=== PATIENT | female | born 1970 | race Two or more races ===

== ENCOUNTER 2025-06-30 17:03 | Emergency (ER) | payer SELFPAY ==
[~2025-06-30] VITALS: Ht 167.6 cm; Wt 106.6 kg
--- NOTE | 2025-06-30 17:24 | ED.PDOC ---
Musculoskeletal HPI Comments A 54 year-old female, with a PMHX of poorly controlled DM, presents to the ED with a chief complaint of dark spot to the 2nd toe of the left foot as of this morning. Patient denies any trauma to the area and reports black dot appearing spontaneously. Patient has no further complaints at this time and otherwise denies further associated symptoms of pain, swelling, nausea, vomiting, fever, or chills. Vital signs were stable on arrival. Chief Complaint: Lower Extremity Time Seen by MD: 17:19 Reviewed Notes: Nurses Notes, Medications, Allergies Allergies: Coded Allergies: NO KNOWN ALLERGIES (Unverified , 06/30/25) Information Source: Patient Mode of Arrival: Ambulatory Location: Left Extremity Location: Toe 2 Timing: Hours Severity: Mild Pain: None Hand Dominance: Right Mechanism: Spontaneous Circumstances: Unknown Onset of Symptoms: Spontaneous DVT Risk Factors: NONE Associated signs and symptoms: Other (Dark spot to L foot 2nd toe ) Past Medical History PAST MEDICAL HISTORY: DM Surgical History: Denies all surgeries Surgical History (Other): Left great toe amputation 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 Family History Family History: Reviewed,noncontributory to illness, No family hx of Cancer, No family hx of DM, No family hx of Heart jen, No family hx of HTN, No family hx ofKidney jen, No family hx of Liver jen, No family hx of Lung jen, No family hx of Stroke Social History Smoker: Non-Smoker Alcohol: Denies ETOH Use Drugs: Denies Drug Use Lives In: Home Constitutional: denies: chills, diaphoresis, fatigue, fever, malaise, sweats, weakness, others EENTM: denies: blurred vision, double vision, ear bleeding, ear discharge, ear drainage, ear pain, ear ringing, eye pain, eye redness, hearing loss, mouth pain, mouth swelling, nasal discharge, nose bleeding, nose congestion, nose pain, photophobia, tearing, throat pain, throat swelling, voice changes, others Respiratory: denies: cough, hemoptysis, orthopnea, SOB at rest, shortness of breath, SOB with excertion, stridor, wheezing, others Cardiovascular: denies: chest pain, dizzy spells, diaphoresis, Dyspnea on exertion, edema, irregular heart beat, left arm pain, lightheadedness, palpitations, PND, syncope, others Gastrointestinal: denies: abdomen distended, abdominal pain, blood streaked bowels, constipated, diarrhea, dysphagia, difficulty swallowing, hematemesis, melena, nausea, poor appetite, poor fluid intake, rectal bleeding, rectal pain, vomiting, others Genitourinary: denies: abnormal vagina bleeding, burning, dyspareunia, dysuria, flank pain, frequency, hematuria, incontinence, pain, , vagina discharge, urgency, others Neurological: denies: dizziness, fainting, headache, left sided numbness, left sided weakness, numbness, paresthesia, pre-existing deficit, right sided numbness, right sided weakness, seizure, speech problems, tingling, tremors, weakness, others Musculoskeletal: denies: back pain, gout, joint pain, joint swelling, muscle pain, muscle stiffness, neck pain, others Integumetry: reports: others (Dark Spot to Left Foot 2nd Digit ); denies: bruises, change in color, change in hair/nails, dryness, laceration, lesions, lumps, rash, wounds Allergic/Immunocompromised: denies: Difficulty Healing, Frequent Infections, Hives, Itching, others Hematologic/Lymphatic: denies: anemia, blood clots, easy bleeding, easy bruising, swollen glands, others Endocrine: denies: excessive hunger, excessive sweating, excessive thirst, excessive urination, flushing, intolerance to cold, intolerance to heat, unexplained weight gain, unexplained weight loss, others Psychiatric: denies: anxiety, bipolar disorder, depression, hopeless, panic disorder, schizophrenia, sleepless, suicidal, others All Other Systems: Reviewed and Negative Physical Exam General Appearance: No Apparent Distress (Patient was in no distress at time of evaluation.), Normal HEENT: Normal ENT Inspection, Pharynx Normal, TMs Normal Neck: Full Range of Motion, Non-Tender, Normal, Normal Inspection Respiratory: Chest Non-Tender, Lungs Clear, No Accessory Muscle Use, No Respiratory Distress, Normal Breath Sounds Cardiovascular: No Edema, No JVD, No Murmur, No Gallop, Normal Peripheral Pulses, Regular Rate/Rhythm Breast Exam: Deferred Gastrointestinal: No Organomegaly, Non Tender, No Pulsatile Mass, Normal Bowel Sounds, Soft Genitalia: Deferred Pelvic: Deferred Rectal: Deferred Extremities: Other (Left foot reveals a great toe amputation. Additional aspect of the 2nd digit has extensive darkening over the tip extending into the nail and pedal aspect. Wound appears to be ecchymotic rather than necrotic. No edema.) Neurologic: Alert, No Motor Deficits, Normal Affect, Normal Mood, No Sensory Deficits Cerebellar Function: Normal Reflexes: Normal Skin: Dry, Normal Color, Warm Lymphatic: No Adenopathy Was a procedure done? Was a procedure done?: No Differential Diagnosis EXT Differential Diagnosis: Cellulitis, Other (Osteomyelitis, contusion) Other Differential Diagnosis Puncture Wound, Blister X-Ray, Labs, Meds, VS Vital Signs Date Time Temp Pulse Resp B/P (MAP) Pulse Ox O2 Delivery O2 Flow Rate FiO2 06/30/25 20:08 97.9 85 16 122/68 (86) 99 97.9 06/30/25 17:05 98.1 101 18 168/75 98 98.1 Lab Test 06/30/25 17:39 06/30/25 17:13 Range/Units White Blood Count 6.2 4.4-10.8 10^3/uL Red Blood Count 4.60 4.0-5.20 10^6/uL Hemoglobin 14.0 12.2-16.2 g/dL Hematocrit 40.0 36.0-46.0 % Mean Corpuscular Volume 87.1 80.0-100.0 fL Mean Corpuscular Hemoglobin 30.4 28.0-32.0 pg Mean Corpuscular Hemoglobin Concent 35.0 32.0-36.0 g/dL Red Cell Distribution Width 14.0 11.8-14.3 % Platelet Count 321 140-450 10^3/uL Mean Platelet Volume 8.3 6.9-10.8 fL Neutrophils (%) (Auto) 70.1 37.0-80.0 % Lymphocytes (%) (Auto) 19.8 10.0-50.0 % Monocytes (%) (Auto) 7.9 0.0-12.0 % Eosinophils (%) (Auto) 1.9 0.0-7.0 % Basophils (%) (Auto) 0.3 0.0-2.0 % Neutrophils # (Auto) 4.4 1.6-8.6 10 ^3/uL Lymphocytes # (Auto) 1.2 0.4-5.4 10 ^3/uL Monocytes # (Auto) 0.5 0-1.3 10 ^3/uL Eosinophils # (Auto) 0.1 0-0.8 10 ^3/uL Basophils # (Auto) 0 0-0.2 10 ^3/uL Nucleated Red Blood Cells 0.1 % Sodium Level 135 L 136-145 mmol/L Potassium Level 4.2 3.5-5.1 mmol/L Chloride Level 103 98-107 mmol/L Carbon Dioxide Level 21 20-31 mmol/L Anion Gap 11 5-15 Blood Urea Nitrogen 19 9-23 mg/dL Creatinine 0.81 0.550-1.02 mg/dL Glomerular Filtration Rate Calc 87 >90 mL/min BUN/Creatinine Ratio 23.5 H 10.0-20.0 Serum Glucose 258 H 74-106 mg/dL Calcium Level 10.1 8.7-10.4 mg/dL Urine Color Dark-yellow Yellow Urine Clarity Turbid H Clear Urine pH 5.5 5.0-9.0 Urine Specific [place] 1.036 H 1.001-1.035 Urine Protein 1+ H Negative Urine Ketones 1+ H Negative Urine Blood 3+ H Negative /uL Urine Nitrite Negative Negative Urine Bilirubin Negative Negative Urine Urobilinogen Normal Negative mg/dL Urine Leukocyte Esterase Negative Negative /uL Urine RBC 1004 0 - 4 /hpf Urine Microscopic WBC 37 H 0-5 /HPF Urine Squamous Epithelial Cells Few <5 /hpf Urine Bacteria None seen None Seen /hpf Urine Hyaline Casts Few 0 - 2 /lpf Urine Mucus Few None Seen Urine Yeast (Budding) Occasional None Seen /hpf Urine Glucose 3+ H Normal mg/dL X-Ray, Labs, Meds, VS Comment All studies performed the ED were evaluated by me personally. Serum studies were unremarkable for any systemic concerns other than prove of a poorly controlled diabetic state. Urinalysis confirmed a significant urinary tract infection. Patient was given her 1st dose of antibiotics prior to discharge. CT of the foot was unremarkable for any osteomyelitis formation. Patient appears to have sustained a contusion. Advised patient utilize antibiotics as directed until completion. Time of 1ST Reevaluation: 21:33 Reevaluation 1ST: Improved Consultation: PCP Patient Education/Counseling: Diagnosis, Treatment Family Education/Counseling: Diagnosis, Treatment, No Family Present Sepsis Recent Procedure: No On Antibiotic Therapy: No Respiratory Rate >20: No Heart Rate >90: No Temp<36 C (96.8 F) or >38.3 C: No SBP <90 or MAP <65 mmHG: No New Acute Mental Status Change: No Is the patient on CPAP, BIPAP,: No IV fluid given: No Departure 1 Departure Time of Disposition: 21:35 Impression: Primary Impression: Toe contusion Additional Impressions: Hyperglycemia due to diabetes mellitus UTI (urinary tract infection) Disposition: HOME / SELF CARE / HOMELESS Condition: Stable Additional Instructions: Advised patient utilize antibiotics as directed until completion and additional ly, advised patient follow up with the primary care provider for discussions related to improvement of her poorly controlled diabetes. If toe symptoms worsen, return to ED for management. e-Prescriptions Sulfamethoxazole W/Trimethopri (Bactrim Ds Tablet) 1 Tab Tb 1 TAB PO BID for 7 Days, #14 TAB Prov: MERT KAPOOR PAC 06/30/25 Discharged With: Self, Friend Critical Care Note Critical Care Time?: No Stability Stability form required: No Heart Score Heart Score: Heart Score Response (Comments) Value History N/A 0 EKG N/A 0 Age N/A 0 Risk Factors N/A 0 Troponin N/A 0 Total 0 I personally scribed for MERT KAPOOR PAC ([email or web address]) on 06/30/25 at 17:24. Electronically submitted by Amber Roth ([email or web address]). I personally scribed for MERT KAPOOR PAC ([email or web address]) on 06/30/25 at 17:24. Electronically submitted by Amber Roth ([email or web address]). MERT KAPOOR PAC Jun 30, 2025 17:24
[2025-06-30 17:55] LABS: Hematocrit 40.0 % (36.0-46.0); Hemoglobin 14.0 g/dL (12.2-16.2); Mean Corpuscular Hemoglobin 30.4 pg (28.0-32.0); Mean Corpuscular Volume 87.1 fL (80.0-100.0); Nucleated Red Blood Cells % 0.1 %
[2025-06-30 18:00] LABS: Chloride 103 mmol/L (98-107); Potassium 4.2 mmol/L (3.5-5.1)
[2025-06-30 18:01] LABS: Anion Gap 11 (5-15); Carbon Dioxide 21 mmol/L (20-31)
[2025-06-30 18:02] LABS: Calcium 10.1 mg/dL (8.7-10.4)
[2025-06-30 18:07] LABS: BUN/Creatinine Ratio 23.5 (10.0-20.0); Blood Urea Nitrogen 19 mg/dL (9-23)
[2025-06-30 18:11] LABS: Glucose 258 mg/dL (74-106); Sodium 135 mmol/L (136-145)
--- NOTE | 2025-06-30 18:13 | DVH ---
EXAM: CT CT L FOOT WO CONTRAST INDICATION: Rule out osteo of distal 2nd toe EXAM DATE: 06/30/2025 05:19 PM COMPARISON: None TECHNIQUE: Multiple axial CT images of the left foot were obtained using bone algorithm. Axial and co raul reformatting was done. Bone and soft tissue windows were reviewed. Radiation Dose Information: CT Dose: CTDI volume is 7.75 mGy. Dose-length product is 174.11 mGy*cm Findings/Impression: There is no evidence of an acute fracture, dislocation, erosive changes, blastic, or lytic lesions. 1st digit amputation. No definite abnormality of the 2nd digit. No radiopaque foreign bodies. No joint effusion or superficial soft tissue abnormalities. If there is continued clinical suspicion for osteomyelitis, recommend a contrast-enhanced MRI or nucl ear medicine WBC scan for further evaluation.
[2025-06-30 20:08] VITALS: BP 122/68; PULSE 85; RESP 16; TEMP 97.9; O2SAT 99
[2025-06-30 21:15] LABS: Urine Budding Yeast OCCASIONAL /hpf (None Seen); Urine Protein, UAD 1+ (Negative)
[2025-06-30] MEDS ORDERED: BACDST PO (21:38)
[2025-06-30] MEDS: SULFAMETHOX W/TRIMETH(800/160MG) DS TAB PO ONE (21:56)
== END 2025-06-30 21:48 | disposition home or self-care (01) ==
LOC: ER 17:03
DX: S90.122A Contusion of left lesser toe(s) without damage to nail, initial encounter (principal); E11.65 Type 2 diabetes mellitus with hyperglycemia; N39.0 Urinary tract infection, site not specified; Z89.412 Acquired absence of left great toe; X58.XXXA Exposure to other specified factors, initial encounter; Y93.89 Activity, other specified; Y92.89 Other specified places as the place of occurrence of the external cause; Y99.8 Other external cause status
CPT/HCPCS: 36415; 73700; 80048; 81001; 85025

== ENCOUNTER 2025-07-09 14:39 | Inpatient (IN) | payer MEDICAID, OTHER ==
[~2025-07-09] VITALS: Ht 167.6 cm; Wt 107.5 kg
[~2025-07-09 14:39] MED LIST: BACDST PO
[2025-07-09] MEDS: SODIUM CHLORIDE 0.9% 1,000 ML IV ONE (15:30)
--- NOTE | 2025-07-09 15:43 | ED.PDOC ---
History of Present Illness(SKN HPI Comments 54 y/o F, with PMHx of DM presents to the ED for CC of wound check. Patient states, she has been experiencing worsening left foot second digit discoloration x3days. Patient reports, to have been seen at [facility] on 06/30/25 and being departed home with no significant findings. Patient relays, that discoloration happened spontaneously and denies any trauma, injuries, or recent fall. No other symptoms or modifying factors present at this time. Chief Complaint: Wound Check Time Seen by MD: 15:30 History of Present Illness: Nurses Notes, Medications, Allergies Allergies: Coded Allergies: NO KNOWN ALLERGIES (Unverified , 06/30/25) Home Meds Active Scripts Sulfamethoxazole W/Trimethopri (Bactrim Ds Tablet) 1 Tab Tb, 1 TAB PO BID for 7 Days, #14 TAB Prov:ANTWONMERT PAC 06/30/25 Information Source: Patient Mode of Arrival: Ambulatory Severity: Moderate Timing: Days Duration: Since onset Prehospital treatment: None Location: Foot (left foot 2nd digit) Mechanism: Spontaneous Onset Developed: Other (discoloration) Retained Foreign Body: No Immunization Status of Animal: NA History of: Diabetes Associated Signs and Symptoms: None Past Medical History PAST MEDICAL HISTORY: DM Surgical History: Denies all surgeries 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 Family History Family History: Reviewed,noncontributory to illness, No family hx of Cancer, No family hx of DM, No family hx of Heart jen, No family hx of HTN, No family hx ofKidney jen, No family hx of Liver jen, No family hx of Lung jen, No family hx of Stroke Social History Smoker: Non-Smoker Alcohol: Denies ETOH Use Drugs: Denies Drug Use Lives In: Home Constitutional: denies: chills, diaphoresis, fatigue, fever, malaise, sweats, weakness, others EENTM: denies: blurred vision, double vision, ear bleeding, ear discharge, ear drainage, ear pain, ear ringing, eye pain, eye redness, hearing loss, mouth pain, mouth swelling, nasal discharge, nose bleeding, nose congestion, nose pain, photophobia, tearing, throat pain, throat swelling, voice changes, others Respiratory: denies: cough, hemoptysis, orthopnea, SOB at rest, shortness of breath, SOB with excertion, stridor, wheezing, others Cardiovascular: denies: chest pain, dizzy spells, diaphoresis, Dyspnea on exertion, edema, irregular heart beat, left arm pain, lightheadedness, palpitations, PND, syncope, others Gastrointestinal: denies: abdomen distended, abdominal pain, blood streaked bowels, constipated, diarrhea, dysphagia, difficulty swallowing, hematemesis, melena, nausea, poor appetite, poor fluid intake, rectal bleeding, rectal pain, vomiting, others Genitourinary: denies: abnormal vagina bleeding, burning, dyspareunia, dysuria, flank pain, frequency, hematuria, incontinence, pain, , vagina discharge, urgency, others Neurological: denies: dizziness, fainting, headache, left sided numbness, left sided weakness, numbness, paresthesia, pre-existing deficit, right sided numbness, right sided weakness, seizure, speech problems, tingling, tremors, w eakness, others Musculoskeletal: denies: back pain, gout, joint pain, joint swelling, muscle pain, muscle stiffness, neck pain, others Integumetry: reports: change in color (left foot 2nd digit); denies: bruises, change in hair/nails, dryness, laceration, lesions, lumps, rash, wounds, others Allergic/Immunocompromised: denies: Difficulty Healing, Frequent Infections, Hives, Itching, others Hematologic/Lymphatic: denies: anemia, blood clots, easy bleeding, easy bruising, swollen glands, others Endocrine: denies: excessive hunger, excessive sweating, excessive thirst, excessive urination, flushing, intolerance to cold, intolerance to heat, unexplained weight gain, unexplained weight loss, others Psychiatric: denies: anxiety, bipolar disorder, depression, hopeless, panic disorder, schizophrenia, sleepless, suicidal, others All Other Systems: Reviewed and Negative Physical Exam General Appearance: No Apparent Distress, Normal HEENT: Normal ENT Inspection, Pharynx Normal Neck: Full Range of Motion, Non-Tender, Normal, Normal Inspection Respiratory: Chest Non-Tender, Lungs Clear, No Accessory Muscle Use, No Respiratory Distress, Normal Breath Sounds Cardiovascular: No Edema, No Murmur, No Gallop, Normal Peripheral Pulses, Reg ular Rate/Rhythm Breast Exam: Deferred Gastrointestinal: No Organomegaly, Non Tender, No Pulsatile Mass, Normal Bowel Sounds, Soft Genitalia: Deferred Pelvic: Deferred Rectal: Deferred Extremities: No calf tenderness, Normal capillary refill, Normal inspection, Normal range of motion, Non-tender, No pedal edema Musculoskeletal : Location: Left Extremity Location: Foot, Great Toe (left great toe amputation), Toe 2 (left second digit discoloration) Apperance: Normal Neurologic: Alert, funeral 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 Was a procedure done?: No Differential Diagnosis (INTG) Differential Diagnosis: Gangrene, Osteomyelitis X-Ray, Labs, Meds, VS Vital Signs Date Time Temp Pulse Resp B/P (MAP) Pulse Ox O2 Delivery O2 Flow Rate FiO2 07/09/25 14:41 98.1 98 18 114/68 98 98.1 [place] [address] Ph: [phone] DIAGNOSTIC IMAGING Diagnostic Imaging Report : [id number] Signed PATIENT: GIGI URENA ACCT: [id number] UNIT: [id number] : 1970 LOC: ER ROOM / BED: / AGE / SEX: 54 / F ADM STATUS: REG ER SERVICE 1530 ORDERING PHYSICIAN: LANCE HERNANDEZ MD PROCEDURE(s): LFOOT - L FOOT 3 VIEW XRAY REASON: c/f 2nd toe infection ORDER NUMBER(s): [id number], ACCESSION NUMBER(s): [id number] X-ray left foot Technique: AP lateral and oblique views REASON FOR EXAM: c/f 2nd toe infection INDICATION: c/f 2nd toe infection FINDINGS: There has been amputation of the 1st digit. There is periarticular osteoporosis. No cortical destruction of bone. Plantar heel spur on lateral view IMPRESSION: 1. No acute bony pathology ATED BY: BHUMI SAINI MD DICTATED DATE/TIME: 07/09/251601 SIGNED BY: BHUMI SAINI MD SIGNED DATE/TIME: 07/09/25 160 CC: Time of 1ST Reevaluation: 16:00 Reevaluation 1ST: Unchanged Patient Education/Counseling: Diagnosis, Treatment Family Education/Counseling: No Family Present SEPSIS Sepsis Screen Date sepsis recognized/suspect: Jul 09, 2025 Time Sepsis recognized/suspect: 1443 Recent Procedure: No On Antibiotic Therapy: No Respiratory Rate >20: No Heart Rate >90: No Temp<36 C (96.8 F) or >38.3 C: No SBP <90 or MAP <65 mmHG: No New Acute Mental Status Change: No Is the patient on CPAP, BIPAP,: No Physician Orders L Foot 3 View Xray (07/09/25 15:30) Basic Metabolic Panel (07/09/25 15:30) Complete Blood Count (07/09/25 15:30) Lactic Acid W/ Reflex Order (07/09/25 15:30) Blood Culture (07/09/25 15:30) Cefepime 2gm/50ml Ns (Maxipime 2gm/50ml) (07/09/25 15:30) Vital Signs Date Time Temp Pulse Resp B/P (MAP) Pulse Ox O2 Delivery O2 Flow Rate FiO2 07/09/25 14:41 98.1 98 18 114/68 98 98.1 Departure 1 Departure Time of Disposition: 17:56 (Patient with concern for osteo of the left 2nd toe. will cover patient with antibiotics and admit for expert consultation. ) Impression: Primary Impression: Osteomyelitis Qualified Codes: M86.172 - Other acute osteomyelitis, left ankle and foot Additional Impression: Toe infection Disposition: ADMITTED INPATIENT Admit to: Med Surg Condition: Serious Critical Care Note Critical Care Time?: No Stability Stability form required: No Heart Score Heart Score: Heart Score Response (Comments) Value History N/A 0 EKG N/A 0 Age N/A 0 Risk Factors N/A 0 Troponin N/A 0 Total 0 I personally scribed for LANCE HERNANDEZ MD ([email or web address]) on 07/09/25 at 15:43. Electronically submitted by Ruth Crump ([email or web address]). I personally scribed for LANCE HERNANDEZ MD ([email or web address]) on 07/09/25 at 17:22. Electronically submitted by Ruth Crump ([email or web address]). LANCE HERNANDEZ MD Jul 09, 2025 15:43
--- NOTE | 2025-07-09 16:04 | DVH ---
X-ray left foot Technique: AP lateral and oblique views REASON FOR EXAM: c/f 2nd toe infection INDICATION: c/f 2nd toe infection FINDINGS: There has been amputation of the 1st digit. There is periarticular osteoporosis. No cortica l destruction of bone. Plantar heel spur on lateral view IMPRESSION: 1. No acute bony pathology
[2025-07-09 19:19] LABS: Chloride 105 mmol/L (98-107); Potassium 5.0 mmol/L (3.5-5.1); Sodium 138 mmol/L (136-145)
[2025-07-09 19:20] LABS: Anion Gap 10 (5-15); Carbon Dioxide 23 mmol/L (20-31)
[2025-07-09 19:21] LABS: Calcium 10.1 mg/dL (8.7-10.4)
[2025-07-09 19:26] LABS: BUN/Creatinine Ratio 15.0 (10.0-20.0); Blood Urea Nitrogen 12 mg/dL (9-23)
[2025-07-09 19:36] LABS: Hematocrit 39.8 % (36.0-46.0); Hemoglobin 13.9 g/dL (12.2-16.2); Mean Corpuscular Hemoglobin 30.6 pg (28.0-32.0); Mean Corpuscular Volume 87.8 fL (80.0-100.0); Nucleated Red Blood Cells % 0.1 %
[2025-07-09 19:48] LABS: Glucose 146 mg/dL (74-106)
[2025-07-09 19:59] LABS: Lactic Acid w/Reflex 2.4 mmol/L (0.4-2.0)
[2025-07-09] MEDS ORDERED: DEXTROSE (50%) 50ML SYRG IV PRN (22:15)
--- NOTE | 2025-07-09 22:56 | DVH ---
EXAMINATION: CT CT L FOOT WO CONTRASTCT CT L FOOT WO CONTRAST INDICATION: R/O infection/ osteomyelitis COMPARISON: XY L FOOT 3 VIEW XRAY on DOS: 07/09/25, CT CT L FOOT WO CONTRAST on DOS: 06/30/25 TECHNIQUE: CT of the rightleft foot was performed without contrast. Volume transverse images were obt ained reconstructed in multiple planes using bone and soft tissue algorithms. CONTRAST: None DLP: 202 mGy-cm FINDINGS: The alignment is normal. The joint spaces are normal. No fracture. No dislocation. Amputation changes are again seen in the 1st digit. No obvious osseous destructive changes identified. Osteomyelitis is not excluded. If there is ongoin g concern for acute osteomyelitis, recommend MRI of the foot There are no joint effusions. Soft tissue edema and skin thickening is seen throughout the heel which is suspicious for cellulitis. Small plantar calcaneal enthesophyte IMPRESSION: 1. Soft tissue edema and skin thickening is seen throughout the heel which is suspicious for cellulit is. 2. No obvious osseous destructive changes identified. Osteomyelitis is not excluded. If there is whitney oing concern for acute osteomyelitis, recommend MRI of the foot
--- NOTE | 2025-07-09 23:25 | DVHHPRES ---
History of Present Illness Resident Creating Document: VIRGEN KAUR RESIDENT History of Present Illness Eva Mcclelland is a 54-year-old female, with past medical history of DM type 2 and hypothyroidism. The patient presented to the ED with chief complaint of 1 week left foot 2nd digit color discoloration "turning black" without trauma. The patient states, she first noticing a small purple dot on the tip of the left 2nd toe that has progressively increased on sized on the past week. Associated with pain and needles sensation. Today, she noticed the discoloration was getting d arker, with peripheral erythema and warmth, this prompted her visit to the ED. Patient reports, to have been seen at [facility] on 06/30/25 for the same complaint and being departed home with no significant findings. The patient reported she had amputation of left 1st toe 2 years ago. The patient denies trauma of the toe, injuries, fever, or other symptoms. The patient will be admitted for further evaluation and management. Endocrine: Diabetes (Type 2 for about 17 years. ), Hypothyroidism Past Surgical History: Other (Left 1st digit amputation in 2022) Smoke: No ALCOHOL: none Lives: with Family Review of Systems Constitutional: No: Fever, Chills, Sweats, Weakness, Malaise, Other Eyes: No: Pain, Vision change, Conjunctivae inflammation, Eyelid inflammation, Other, Redness ENT: No: Ear pain, Ear discharge, Nose pain, Nose discharge, Nose congestion, Mouth pain, Mouth swelling, Throat pain, Throat swelling, Other Cardiovascular: No: Chest Pain, Palpitations, Orthopnea, Paroxysmal Noc. Dyspnea, Edema, Lt Headedness, Other Gastrointestinal: No: Nausea, Vomiting, Abdominal Pain, Diarrhea, Constipation, Melena, Hematochezia, Other Genitourinary: No Dysuria, No Frequency, No Incontinence, No Hematuria, No Retention, No Other Musculoskeletal: other (discoloration on left 2nd digit of the foot), neck pain , shoulder pain Skin: No: Rash, Lesions, Jaundice, Bruising, Other Neurological: No: Weakness, Numbness, Incoordination, Change in speech, Confusion, Seizures, Other Allergies: Coded Allergies: NO KNOWN ALLERGIES (Unverified , 06/30/25) Medications Current Medications Medications Dose Ordered Sig/Parth Route Start Time Stop Time Status Last Admin Dose Admin Diagnostic Test (Pha) 1 strip Q6HR 07/10/25 00:00 Insulin Human Regular Q6HR SC 07/10/25 00:00 Dextrose 50 ml UD PRN IV 07/09/25 22:15 Pantoprazole Sodium 40 mg DAILY PO 07/10/25 10:00 Aspirin 81 mg DAILY PO 07/10/25 10:00 Atorvastatin Calcium 40 mg DAILY PO 07/10/25 10:00 Exam Vital Signs Vital Signs Date Time Temp Pulse Resp B/P (MAP) Pulse Ox O2 Delivery O2 Flow Rate FiO2 07/09/25 19:45 98.2 86 16 124/65 (84) 97 98.2 General Appearance: Alert, Oriented X3, Cooperative, No acute distress HEENT: Atraumatic, Mucous membr. moist/pink Respiratory: Clear to auscultation, Normal air movement Cardiovascular: Regular rate, Normal S1, Normal S2, No murmurs Abdominal: Normal bowel sounds, Soft, No tenderness, No hepatospenomegaly, No masses Extremities: No clubbing, No cyanosis, No edema, Other (Left foot 1st digit amputated. 2nd digit with dark discoloration, erythema on the side margins and warmth. The pedal pulses are decreased 1+/5 +. Propioseption is present, sensitivity decreased 2+/5+) Skin: No rashes, No breakdown, No significant lesion Neuro: Normal gait, Normal speech, Normal tone, Sensation intact Psych/Mental Status: Mental status NL, Mood NL Labs/Xrays Labs Test 07/09/25 21:26 07/09/25 18:39 Range/Units Lactic Acid Level 0.8 0.4-2.0 mmol/L White Blood Count 5.6 4.4-10.8 10^3/uL Red Blood Count 4.53 4.0-5.20 10^6/uL Hemoglobin 13.9 12.2-16.2 g/dL Hematocrit 39.8 36.0-46.0 % Mean Corpuscular Volume 87.8 80.0-100.0 fL Mean Corpuscular Hemoglobin 30.6 28.0-32.0 pg Mean Corpuscular Hemoglobin Concent 34.9 32.0-36.0 g/dL Red Cell Distribution Width 13.8 11.8-14.3 % Platelet Count 323 140-450 10^3/uL Mean Platelet Volume 8.1 6.9-10.8 fL Neutrophils (%) (Auto) 62.3 37.0-80.0 % Lymphocytes (%) (Auto) 26.7 10.0-50.0 % Monocytes (%) (Auto) 9.1 0.0-12.0 % Eosinophils (%) (Auto) 1.7 0.0-7.0 % Basophils (%) (Auto) 0.2 0.0-2.0 % Neutrophils # (Auto) 3.5 1.6-8.6 10 ^3/uL Lymphocytes # (Auto) 1.5 0.4-5.4 10 ^3/uL Monocytes # (Auto) 0.5 0-1.3 10 ^3/uL Eosinophils # (Auto) 0.1 0-0.8 10 ^3/uL Basophils # (Auto) 0 0-0.2 10 ^3/uL Nucleated Red Blood Cells 0.1 % Sodium Level 138 136-145 mmol/L Potassium Level 5.0 3.5-5.1 mmol/L Chloride Level 105 98-107 mmol/L Carbon Dioxide Level 23 20-31 mmol/L Anion Gap 10 5-15 Blood Urea Nitrogen 12 9-23 mg/dL Creatinine 0.80 0.550-1.02 mg/dL Glomerular Filtration Rate Calc 89 >90 mL/min BUN/Creatinine Ratio 15.0 10.0-20.0 Serum Glucose 146 H 74-106 mg/dL Calcium Level 10.1 8.7-10.4 mg/dL SEPSIS Sepsis Screen Date sepsis recognized/suspect: Jul 09, 2025 Time Sepsis recognized/suspect: 1443 Recent Procedure: No On Antibiotic Therapy: No Respiratory Rate >20: No Heart Rate >90: No Temp<36 C (96.8 F) or >38.3 C: No SBP <90 or MAP <65 mmHG: No New Acute Mental Status Change: No Is the patient on CPAP, BIPAP,: No Physician Orders L Foot 3 View Xray (07/09/25 15:30) Blood Culture (07/09/25 15:30) Lt Low Ext Art Duplex (07/09/25 21:45) Ct L Foot Wo Contrast (07/09/25 21:45) Admit (07/09/25 22:08) Code Status (07/09/25 22:08) Vital Signs .PER UNIT PROTOCOL (07/09/25 22:08) Review Orders With Adm.Md (07/09/25 22:08) Bedrest With Bathroom Privileg (07/09/25 22:08) Consistent Carb(Ccho)Diabetes (07/10/25 Breakfast) Notify Md Of Changes From Base (07/09/25 22:08) Advance Directive (07/09/25 22:08) Urinalysis (07/09/25 22:08) Patient Condition (07/09/25 22:08) Allergies (07/09/25 22:08) Drug Screen (07/09/25 22:08) Notify Md Of Changes From Base (07/09/25 22:08) Glucose Blood (Accu-Chek Comfort Curve T (07/10/25 00:00) Insulin R (Human) (Insulin R) (07/10/25 00:00) Dextrose 50% Syringe (07/09/25 22:15) Pantoprazole Tablet (Protonix Tablet) (07/10/25 10:00) Aspirin Tablet (07/10/25 10:00) Atorvastatin (Lipitor) (07/10/25 10:00) Complete Blood Count (07/10/25 04:00) Basic Metabolic Panel (07/10/25 04:00) Hemoglobin A1c (07/09/25 22:23) Vital Signs Date Time Temp Pulse Resp B/P (MAP) Pulse Ox O2 Delivery O2 Flow Rate FiO2 07/09/25 19:45 98.2 86 16 124/65 (84) 97 98.2 07/09/25 14:41 98.1 98 18 114/68 98 98.1 Laboratory Tests Test 07/09/25 18:39 07/09/25 21:26 Lactic Acid Level 2.4 mmol/L (0.4-2.0) *H 0.8 mmol/L (0.4-2.0) White Blood Count 5.6 10^3/uL (4.4-10.8) Assessment/Plan Assessment/Plan #Left foot 2nd digit osteomyelitis #R/O peripheral vascular insufficiency. Left foot CT scan Left foot Doppler US Atorvastatin 40mg po Aspirin 81 mg po Surgery consult. Vascular surgery consult #DM type 2 with hyperglycemia HbA1c Insulin Sliding scale #Hypothyroidism Levothyroxin 150mcg po qd #Obesity Counselling, life style modifications. Diabetic diet DVT prophylaxis- ambulating. PUD prophylaxis Protonic. Goals of care discussed with the patient > 35 min. Discussed plan of care with Dr. Horne Code status: Full code PCP: Clinic in [place], does not recall the name. Plan discussed with: Patient, the patient agrees with the admission plan. Plan discussed with: Patient My Orders Orders - VIRGEN KAUR RESIDENT Procedure Category Date Status Time Admit ADMIT 07/09/25 Transmitted 22:08 Code Status CODE 07/09/25 Transmitted 22:08 Vital Signs [facility] 07/09/25 In Process 22:08 Review Orders With [facility] 07/09/25 In Process Adm.Md 22:08 Bedrest With Bathroom [facility] 07/09/25 In Process Privileg 22:08 Consistent DIET 07/10/25 Transmitted Carb(Ccho)Diabetes Breakfast Notify Md Of Changes [facility] 07/09/25 In Process From Base 22:08 Advance Directive [facility] 07/09/25 In Process 22:08 Urinalysis LAB 07/09/25 Logged 22:08 Patient Condition ORDERS 07/09/25 Transmitted 22:08 Allergies [facility] 07/09/25 In Process 22:08 Drug Screen LAB 07/09/25 Logged 22:08 Notify Md Of Changes [facility] 07/09/25 In Process From Base 22:08 Glucose Blood PHA 07/10/25 In Process (Accu-Chek Comfort 00:00 Insulin R (Human) PHA 07/10/25 In Process (Insulin R) 00:00 Dextrose 50% Syringe PHA 07/09/25 In Process 22:15 Pantoprazole Tablet PHA 07/10/25 In Process (Protonix Tablet) 10:00 Aspirin Tablet PHA 07/10/25 In Process 10:00 Atorvastatin (Lipitor) PHA 07/10/25 In Process 10:00 Complete Blood Count LAB 07/10/25 Verified 04:00 Basic Metabolic Panel LAB 07/10/25 Verified 04:00 Hemoglobin A1c LAB 07/09/25 In Process 22:23 Date of Service: Jul 09, 2025 Billing Provider: JARED HORNE MD Common Visit Codes: 32106-CUPCSTD INP/OBS CARE (HIGH) Secondary Visit Codes: [id number] CARE PLAN 30 MINUTES VIRGEN KAUR RESIDENT Jul 09, 2025 23:25
--- NOTE | 2025-07-09 23:30 | DVH ---
LEFT LOWER EXTREMITY ARTERIAL DUPLEX ULTRASOUND STUDY: REASON FOR EXAM: R/O SEVERE PAD TECHNIQUE: The full lengths of the arterial segments were evaluated with color-flow Doppler ultrasoun d. Suspected abnormalities were evaluated with askew scale ultrasound. Decorator Hand spectral Doppler waveforms, with velocity measurements were obtained. Spectral waveforms with velocity measurements w ere obtained 2 to 4 cm central to any areas of significant stenosis. Common femoral, superficial femo ral, popliteal, posterior tibial, and anterior tibial arteries were evaluated. FINDINGS: There is diffuse atherosclerotic plaque throughout the left lower extremity. The common femoral marc ry waveform is multiphasic with a brisk upstroke. The superficial femoral and popliteal arteries are patent with moderate velocity monophasic waveforms. No flow is identified in the posterior tibial art ida. There is monophasic flow in the distal anterior tibial artery. IMPRESSION: Occluded posterior tibial artery. No other occlusion or focal stenosis is identified. Monophasic flow throughout the majority of the le ft lower extremity.
[2025-07-10] MEDS: ACCU-CHEK COMFORT CURVE STRIP VI SCH
[2025-07-10] MEDS: InsuLIN REG 1unit/0.01ml Soln (100units/ml) SC SCH
[2025-07-10] MEDS: ACETAMINOPHEN 325 MG TAB PO ONE (04:43)
[2025-07-10] MEDS: CEFEPIME 2GM/50ML NS 50 ML IV ONE (05:08)
[2025-07-10 07:40] LABS: Hematocrit 38.9 % (36.0-46.0); Hemoglobin 13.2 g/dL (12.2-16.2); Mean Corpuscular Hemoglobin 30.0 pg (28.0-32.0); Mean Corpuscular Volume 88.1 fL (80.0-100.0); Nucleated Red Blood Cells % 0.2 %
[2025-07-10 07:46] LABS: Anion Gap 9 (5-15); Calcium 9.4 mg/dL (8.7-10.4); Potassium 4.3 mmol/L (3.5-5.1); Sodium 137 mmol/L (136-145)
[2025-07-10 07:52] LABS: BUN/Creatinine Ratio 12.5 (10.0-20.0); Blood Urea Nitrogen 10 mg/dL (9-23)
[2025-07-10 07:57] LABS: Carbon Dioxide 20 mmol/L (20-31); Chloride 108 mmol/L (98-107); Glucose 181 mg/dL (74-106)
[2025-07-10] MEDS: VANCOMYCIN 1GM/200ML PM 200 ML IV ONE (08:14)
[2025-07-10] MEDS: ATORVASTATIN 20 MG TAB PO SCH (08:26)
[2025-07-10] MEDS: PANTOPRAZOLE 40 MG TAB PO SCH (08:27)
[2025-07-10 09:00] VITALS: BP 131/62; PULSE 83; RESP 18; TEMP 98; O2SAT 98
[2025-07-10] MEDS ORDERED: PANTOPRAZOLE 40 MG TAB PO SCH (10:00)
[2025-07-10 12:24] VITALS: PULSE 95; RESP 18; O2SAT 98
--- NOTE | 2025-07-10 12:37 | DVHCONRES ---
Date Seen: Jul 10, 2025 Resident Creating Document: CRISTINA DAVENPORT Jr., MD Referring Physician er Reason for Consultation Left 2nd toe ulcer History of Present Illness 54-year-old female, with past medical history of DM type 2 and hypothyroidism. The patient presented to the ED with chief complaint of 1 week left foot 2nd digit color discoloration "turning black" without trauma. The patient states, she first noticing a small purple dot on the tip of the left 2nd toe that has progressively increased on sized on the past week. Associated with pain and needles sensation. Today, she noticed the discoloration was getting darker, with peripheral erythema and warmth, this prompted her visit to the ED. Patient reports, to have been seen at [facility] on 06/30/25 for the same complaint and being departed home with no significant findings. The patient reported she had amputation of left 1st toe 2 years ago. The patient denies trauma of the toe, injuries, fever, or other symptoms. The patient will be admitted for further evaluation and management. Patient currently asymptomatic Past Medical History DM type 2 and hypothyroidism. Past Surgical History Left 1st toe amputation Social History Nonsmoker nondrinker Allergies: Coded Allergies: NO KNOWN ALLERGIES (Unverified , 06/30/25) Home Meds Active Scripts Sulfamethoxazole W/Trimethopri (Bactrim Ds Tablet) 1 Tab Tb, 1 TAB PO BID for 7 Days, #14 TAB Prov:MERT KAPOOR PAC 06/30/25 Current Medications Current Medications Medications (Trade) Dose Ordered Sig/Parth Route PRN Reason Start Time Stop Time Status Last Admin Diagnostic Test (Pha) (Accu-Chek Comfort Curve T) 1 strip Q6HR 07/10/25 00:00 07/10/25 11:06 Insulin Human Regular (InsuLIN R) Q6HR SC 07/10/25 00:00 07/10/25 11:06 Dextrose 50 ml UD PRN IV Blood Sugar LESS THAN 60 07/09/25 22:15 Pantoprazole Sodium (Protonix Tablet) 40 mg DAILY PO 07/10/25 10:00 07/09/25 22:28 DC Pantoprazole Sodium (Protonix Tablet) 40 mg DAILY PO 07/10/25 10:00 07/10/25 08:27 Aspirin 81 mg DAILY PO 07/10/25 10:00 07/10/25 08:27 Atorvastatin Calcium (Lipitor) 40 mg DAILY PO 07/10/25 10:00 07/10/25 08:26 Review of Systems Systems reviewed otherwise negative other than what is in HPI Vital Signs Vital Signs Date Time Temp Pulse Resp B/P (MAP) Pulse Ox O2 Delivery O2 Flow Rate FiO2 07/10/25 12:24 95 18 98 Room Air* 0 21 07/10/25 09:00 98.0 131/62 (85) 98.0 Physical Exam Head eyes ears nose and throat exam eyes are nonicteric conjunctiva is pink neck was supple no JVD no lymphadenopathy no carotid bruits lungs are clear to auscultation heart was regular rate and rhythm abdomen is soft nontender with no pulsatile abdominal mass. Extremities palpable femoral and pedal pulses on the DP bilateral. There is dry scab/blister on the distal 2nd toe. Remaining portion of the toe is healthy. Labs/Diagnostic Data Labs Test 07/10/25 11:03 07/10/25 07:00 07/09/25 21:26 07/09/25 18:39 Range/Units POC Glucose 251 H 70-106 mg/dl White Blood Count 4.8 4.4-10.8 10^3/uL Red Blood Count 4.42 4.0-5.20 10^6/uL Hemoglobin 13.2 12.2-16.2 g/dL Hematocrit 38.9 36.0-46.0 % Mean Corpuscular Volume 88.1 80.0-100.0 fL Mean Corpuscular Hemoglobin 30.0 28.0-32.0 pg Mean Corpuscular Hemoglobin Concent 34.0 32.0-36.0 g/dL Red Cell Distribution Width 13.9 11.8-14.3 % Platelet Count 271 140-450 10^3/uL Mean Platelet Volume 8.0 6.9-10.8 fL Neutrophils (%) (Auto) 62.4 37.0-80.0 % Lymphocytes (%) (Auto) 27.1 10.0-50.0 % Monocytes (%) (Auto) 7.8 0.0-12.0 % Eosinophils (%) (Auto) 2.4 0.0-7.0 % Basophils (%) (Auto) 0.3 0.0-2.0 % Neutrophils # (Auto) 3.0 1.6-8.6 10 ^3/uL Lymphocytes # (Auto) 1.3 0.4-5.4 10 ^3/uL Monocytes # (Auto) 0.4 0-1.3 10 ^3/uL Eosinophils # (Auto) 0.1 0-0.8 10 ^3/uL Basophils # (Auto) 0 0-0.2 10 ^3/uL Nucleated Red Blood Cells 0.2 % Sodium Level 137 136-145 mmol/L Potassium Level 4.3 3.5-5.1 mmol/L Chloride Level 108 H 98-107 mmol/L Carbon Dioxide Level 20 20-31 mmol/L Anion Gap 9 5-15 Blood Urea Nitrogen 10 9-23 mg/dL Creatinine 0.80 0.550-1.02 mg/dL Glomerular Filtration Rate Calc 89 >90 mL/min BUN/Creatinine Ratio 12.5 10.0-20.0 Serum Glucose 181 H 74-106 mg/dL Calcium Level 9.4 8.7-10.4 mg/dL Thyroid Stimulating Hormone (TSH) 0.02 L 0.55-4.78 uIU/mL Lactic Acid Level 0.8 0.4-2.0 mmol/L Hemoglobin A1c 9.1 H <5.7 % A1C LEFT LOWER EXTREMITY ARTERIAL DUPLEX ULTRASOUND STUDY: REASON FOR EXAM: R/O SEVERE PAD TECHNIQUE: The full lengths of the arterial segments were evaluated with color- flow Doppler ultrasound. Suspected abnormalities were evaluated with askew scale ultrasound. Administrative Law Judge spectral Doppler waveforms, with velocity measurements were obtained. Spectral waveforms with velocity measurements were obtained 2 to 4 cm central to any areas of significant stenosis. Common femoral, superficial femoral, popliteal, posterior tibial, and anterior tibial arteries were evaluated. FINDINGS: There is diffuse atherosclerotic plaque throughout the left lower extremity. The common femoral artery waveform is multiphasic with a brisk upstroke. The superficial femoral and popliteal arteries are patent with moderate velocity monophasic waveforms. No flow is identified in the posterior tibial artery. There is monophasic flow in the distal anterior tibial artery. IMPRESSION: Occluded posterior tibial artery. No other occlusion or focal stenosis is identified. Monophasic flow throughout the majority of the left lower extremity. Assessment Left 2nd toe ulcer conservative management no endovascular intervention required. She area clean dry Betadine wash daily. Plan/Recommendation Left 2nd toe ulcer conservative management no endovascular intervention required. She area clean dry Betadine wash daily. Plan discussed with: Patient CRISTINA DAVENPORT Jr., MD Jul 10, 2025 12:37
[2025-07-10 13:00] VITALS: BP 121/54; PULSE 76; RESP 19; TEMP 98; O2SAT 95
[2025-07-10] MEDS ORDERED: INSU1INJ19 SC (14:27)
[2025-07-10] MEDS ORDERED: PIOG1TAB37 PO (14:27)
[2025-07-10] MEDS ORDERED: LISI10TA34 PO (14:27)
[2025-07-10] MEDS ORDERED: METF-372 PO (14:27)
[2025-07-10] MEDS ORDERED: SEMA4INJ SC (14:27)
[2025-07-10] MEDS ORDERED: GLIM4TAB42 PO (14:27)
[2025-07-10] MEDS ORDERED: LEVO150T10 PO (14:27)
[2025-07-10] MEDS ORDERED: ATOR20TA (14:27)
--- NOTE | 2025-07-10 16:12 | DVHPNRES ---
Progress Note Date Seen: Jul 10, 2025 Resident Creating Document: YUMI HARRIS Medical Necessity Reason Pt with a Central, PICC or Fol: No Subjective Review of Systems This is 54-year-old female, with past medical history of DM type 2 and hypothyroidism presented to the ED with chief complaint of 1 week left foot 2nd digit color discoloration "turning black" without trauma. The patient states, she notice a small purple dot on the tip of the left 2nd toe that has progressively increased on sized since 1 week. Associated with non-tender and needles sensation. Today, she noticed the discoloration was getting darker, with peripheral erythema and warmth, this prompted her visit to the ED. Patient reports that she havs been seen at [facility] on 06/30/25 for the same complaint and being departed home with no significant findings. The patient reported she had amputation of left 1st toe 2 years ago. The patient denies trauma of the toe, injuries, fever, or other symptoms. The patient will be admitted for further evaluation and management. Past medical history: Diabetes (Type 2 for 17 years), Hypothyroidism Past surgical history: Left 1st digit amputation in 2022 Social & Personal history: Smoke: No ALCOHOL: none Lives: with Family Allergies: Coded Allergies: NO KNOWN ALLERGIES (Unverified , 06/30/25) Patient seen and examined at bedside. Patient is alert and oriented to time, place person and responding to all questions. Eyes: No Pain, No Vision change, No Conjunctivae inflammation, No Eyelid inflammation, No Other, No Redness ENT: No Ear pain, No Ear discharge, No Nose pain, No Nose discharge, No Nose congestion, No Mouth pain, No Mouth swelling, No Throat pain, No Throat swelling, No Other Cardiovascular: No Chest Pain, No Palpitations, No Orthopnea, No Paroxysmal No Dyspnea, No Edema, No Lt Headedness, No Other Respiratory: No Cough, No Dry, No Shortness of breath, No SOB with exertion, No Wheezing, No Hemoptysis, No Pleuritic Pain, No Sputum, No Other Gastrointestinal: No Nausea, No Vomiting, No Abdominal Pain, No Diarrhea, No Constipation, No Melena, No Hematochezia, No Other Genitourinary: No Dysuria, No Frequency, No Incontinence, No Hematuria, No Retention, No Other Musculoskeletal: No other (discoloration on left 2nd digit of the foot), neck pain, shoulder pain, No arm pain, No back pain, No hand pain, No leg pain, No foot pain Skin: No Rash, No Lesions, No Jaundice, No Bruising, No Other Objective vital signs Vital Sign Date Time Temp Pulse Resp B/P (MAP) Pulse Ox O2 Delivery O2 Flow Rate FiO2 07/10/25 13:00 98.0 76 19 121/54 (76) 95 98.0 07/10/25 12:24 Room Air* 0 21 medications Current Medications Medications Dose Ordered Sig/Parth Route Start Time Stop Time Status Last Admin Dose Admin Diagnostic Test (Pha) 1 strip Q6HR 07/10/25 00:00 07/10/25 11:06 1 STRIP Insulin Human Regular Q6HR SC 07/10/25 00:00 07/10/25 11:06 9 UNITS Dextrose 50 ml UD PRN IV 07/09/25 22:15 Pantoprazole Sodium 40 mg DAILY PO 07/10/25 10:00 07/10/25 08:27 40 MG Aspirin 81 mg DAILY PO 07/10/25 10:00 07/10/25 08:27 81 MG Atorvastatin Calcium 40 mg DAILY PO 07/10/25 10:00 07/10/25 08:26 40 MG Examination General Appearance: Cooperative. Well developed. Well nourished. NAD Head Exam: Normal inspection Neck Exam: Normal inspection. Non-tender. Normal alignment Pulmonary/Respiratory: Chest non-tender. Clear bilateral breath sounds, no crackles, no wheezing. Cardiovascular/Chest: Regular rate and rhythm. No murmurs. No JVD. Peripheral Pulses: 2+ Radial (R). 2+ Radial (L). 2+ Pedal (R). 1+ Pedal (L) Abdominal Exam: Normal bowel sounds. Soft. normal abdomen, no visible veins, Nontender. No hepatospenomegaly. No masses Ankle Exam: Negative ankle edema Lower extremities: Left foot 1st digit amputated. 2nd digit with dark discoloration, erythema on the side margins and warmth. The pedal pulses are decreased 1+/5 +. Propioseption is present, sensitivity decreased 2+/5+. Negative lower extremity edema Neuro/Mental Status: A&O x4. Coherent. Thoughts/Psych: Normal thought pattern. Appropriate mood and affect. Good judgement and insight Skin Exam: Normal inspection. Normal color. Warm. Dry laboratory and microbiology Laboratory Tests 07/10/25 07:00 Test 07/10/25 07:00 Range/Units Serum Glucose 181 H 74-106 mg/dL Labs and/or images reviewed: Labs reviewed by me, Image(s) reviewed by me Problem List/Assessment/Plan Problem List/Assessment/Plan # Left lower extremity cellulitis, questionable osteomyelitis; no active signs of infection in the heel noted # peripheral arterial disease # Occluded posterior tibial artery. -CT left foot without contrast: Soft tissue edema and skin thickening is seen throughout the heel which is suspicious for cellulitis. No obvious osseous destructive changes identified. Osteomyelitis is not excluded. If there is ongoing concern for acute osteomyelitis, recommend MRI of the foot -Left Lower extremity Arterial duplex ultrasound study: Occluded posterior tibial artery. -X-ray left foot: No acute bony pathology -vascular surgical consult # type 2 diabetes, uncontrolled Hb A1c 9.1 - Moderate sliding scale insulin # history of hypothyroidism? - serum TSH 0.02 - holding home medication levothyroxine # Obesity -BMI: 38.3 kg/m2 -counseled on life style modifications PUD prophylaxis: protonix 40mg Goals of care: Full code, discussed for >16 minutes on 07/10/25 Plan discussed with patient Plan discussed with Dr. Ramirez Plan discussed with: Patient, Other (RN) My Orders My Orders Orders - YUMI HARRIS RESIDENT Procedure Category Date Status Time * Wound Consult CONS 07/10/25 Transmitted Date of Service: Jul 10, 2025 Billing Provider: VERITO RAMIREZ MD Common Visit Codes: [id number] INP/OBS CARE(HIGH) Secondary Visit Codes: [id number] CARE PLAN 30 MINUTES YUMI HARRIS Jul 10, 2025 16:12 ANASTACIA PATEL RESIDENT Jul 10, 2025 16:28 VERITO RAMIREZ MD Jul 14, 2025 20:51
[2025-07-10 17:00] VITALS: BP 131/47; PULSE 69; RESP 17; TEMP 97.9; O2SAT 98
[2025-07-10] MEDS: ENOXAPARIN SOD 40 MG/0.4 ML SYRINGE SC ONE (17:06)
[2025-07-10 21:00] VITALS: BP 128/64; PULSE 64; RESP 19; TEMP 97.6; O2SAT 97
[2025-07-11 01:00] VITALS: BP 126/47; PULSE 69; RESP 18; TEMP 97.6; O2SAT 94
[2025-07-11 05:00] VITALS: BP 120/50; PULSE 66; RESP 18; TEMP 98.3; O2SAT 97
[2025-07-11 06:05] LABS: Hematocrit 37.2 % (36.0-46.0); Hemoglobin 12.7 g/dL (12.2-16.2); Mean Corpuscular Hemoglobin 30.2 pg (28.0-32.0); Mean Corpuscular Volume 88.9 fL (80.0-100.0); Nucleated Red Blood Cells % 0.1 %
[2025-07-11 06:17] LABS: Potassium 4.3 mmol/L (3.5-5.1); Sodium 138 mmol/L (136-145)
[2025-07-11 06:18] LABS: Anion Gap 10 (5-15); Calcium 9.3 mg/dL (8.7-10.4); Carbon Dioxide 20 mmol/L (20-31)
[2025-07-11 06:23] LABS: BUN/Creatinine Ratio 16.1 (10.0-20.0); Blood Urea Nitrogen 10 mg/dL (9-23)
[2025-07-11 06:24] LABS: Chloride 108 mmol/L (98-107); Glucose 179 mg/dL (74-106)
[2025-07-11] MEDS ORDERED: ATOR20TA50 PO (08:37)
[2025-07-11] MEDS ORDERED: ASPI-325 PO (08:37)
[2025-07-11 09:57] VITALS: BP 130/51; PULSE 73; RESP 18; TEMP 97.9; O2SAT 97
--- NOTE | 2025-07-11 15:42 | DVHDSRES ---
Discharge Summary Date of Admission Resident Creating Document: YUMI HARRIS RESIDENT Jul 09, 2025 at 22:08 Date of Discharge: Jul 11, 2025 Admitting Diagnosis left foot 2nd digit color discoloration Labs/Diagnostic Data: Laboratory Results Test 07/11/25 04:25 07/11/25 00:53 07/10/25 07:00 07/09/25 21:26 White Blood Count 4.2 10^3/uL (4.4-10.8) Red Blood Count 4.18 10^6/uL (4.0-5.20) Hemoglobin 12.7 g/dL (12.2-16.2) Hematocrit 37.2 % (36.0-46.0) Mean Corpuscular Volume 88.9 fL (80.0-100.0) Mean Corpuscular Hemoglobin 30.2 pg (28.0-32.0) Mean Corpuscular Hemoglobin Concent 34.0 g/dL (32.0-36.0) Red Cell Distribution Width 14.0 % (11.8-14.3) Platelet Count 254 10^3/uL (140-450) Mean Platelet Volume 8.2 fL (6.9-10.8) Neutrophils (%) (Auto) 58.3 % (37.0-80.0) Lymphocytes (%) (Auto) 28.4 % (10.0-50.0) Monocytes (%) (Auto) 8.9 % (0.0-12.0) Eosinophils (%) (Auto) 4.0 % (0.0-7.0) Basophils (%) (Auto) 0.4 % (0.0-2.0) Neutrophils # (Auto) 2.4 10 ^3/uL (1.6-8.6) Lymphocytes # (Auto) 1.2 10 ^3/uL (0.4-5.4) Monocytes # (Auto) 0.4 10 ^3/uL (0-1.3) Eosinophils # (Auto) 0.2 10 ^3/uL (0-0.8) Basophils # (Auto) 0 10 ^3/uL (0-0.2) Nucleated Red Blood Cells 0.1 % Sodium Level 138 mmol/L (136-145) Potassium Level 4.3 mmol/L (3.5-5.1) Chloride Level 108 mmol/L (98-107) Carbon Dioxide Level 20 mmol/L (20-31) Anion Gap 10 (5-15) Blood Urea Nitrogen 10 mg/dL (9-23) Creatinine 0.62 mg/dL (0.550-1.02) Glomerular Filtration Rate Calc 107 mL/min (>90) BUN/Creatinine Ratio 16.1 (10.0-20.0) Serum Glucose 179 mg/dL (74-106) Calcium Level 9.3 mg/dL (8.7-10.4) POC Glucose 231 mg/dl (70-106) Thyroid Stimulating Hormone (TSH) 0.02 uIU/mL (0.55-4.78) Lactic Acid Level 0.8 mmol/L (0.4-2.0) Test 07/09/25 18:39 Hemoglobin A1c 9.1 % A1C (<5.7) Other Laboratory Tests 07/11/25 04:25 Brief Hx & Hospital Course: The patient is a 54-year-old female with a history of type 2 diabetes mellitus and hypothyroidism who presented to the emergency department with a one-week history of progressive discoloration of the left second toe, described as turning black. She noted a small purple dot that gradually enlarged, accompanied by peripheral erythema and warmth. She denied trauma, fever, or systemic symptoms. The patient has a history of left first toe amputation in 2022 and was previously evaluated at [facility] on 06/30/25 for similar complaints.On admission, physical examination revealed dark discoloration of the left second toe with surrounding erythema and warmth. Pedal pulses were diminished (1+ on the left), and sensation was decreased. 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 X-ray showed no acute bony pathology. Vascular surgery was consulted for further evaluation. Laboratory workup revealed uncontrolled diabetes (HbA1c 9.1) and suppressed TSH (0.02), prompting temporary discontinuation of levothyroxine. The patient was started on moderate sliding scale insulin and counseled on lifestyle modifications for obesity (BMI 38.3 kg/m). Throughout hospitalization, the patient remained alert, oriented, and stable. She denied pain and showed no signs of acute distress. Nursing assessments confirmed her understanding of the care plan and discharge instructions. She was discharged in stable condition with follow-up scheduled at the [facility] clinic on 07/25/25 at 0930. She was advised to continue outpatient management and follow up with [facility]. Operations or Procedures PROCEDURE(s): LFTCT - CT L FOOT WO CONTRAST REASON: R/O infection/ osteomyelitis ORDER NUMBER(s): [id number], ACCESSION NUMBER(s): [id number] EXAMINATION: CT CT L FOOT WO CONTRASTCT CT L FOOT WO CONTRAST INDICATION: R/O infection/ osteomyelitis COMPARISON: XY L FOOT 3 VIEW XRAY on DOS: 07/09/25, CT CT L FOOT WO CONTRAST on DOS: 06/30/25 TECHNIQUE: CT of the rightleft foot was performed without contrast. Volume transverse images were obtained reconstructed in multiple planes using bone and soft tissue algorithms. CONTRAST: None DLP: 202 mGy-cm FINDINGS: The alignment is normal. The joint spaces are normal. No fracture. No dislocation. Amputation changes are again seen in the 1st digit. No obvious osseous destructive changes identified. Osteomyelitis is not excluded. If there is ongoing concern for acute osteomyelitis, recommend MRI of the foot There are no joint effusions. Soft tissue edema and skin thickening is seen throughout the heel which is suspicious for cellulitis. Small plantar calcaneal enthesophyte IMPRESSION: 1. Soft tissue edema and skin thickening is seen throughout the heel which is suspicious for cellulitis. 2. No obvious osseous destructive changes identified. Osteomyelitis is not excluded. If there is ongoing concern for acute osteomyelitis, recommend MRI of the foot - ---- PROCEDURE(s): LLEAD - Lt Low Ext Art Duplex REASON: R/O SEVERE PAD ORDER NUMBER(s): [id number], ACCESSION NUMBER(s): [id number] LEFT LOWER EXTREMITY ARTERIAL DUPLEX ULTRASOUND STUDY: REASON FOR EXAM: R/O SEVERE PAD TECHNIQUE: The full lengths of the arterial segments were evaluated with color- flow Doppler ultrasound. Suspected abnormalities were evaluated with askew scale ultrasound. Broiler Supervisor spectral Doppler waveforms, with velocity measurements were obtained. Spectral waveforms with velocity measurements were obtained 2 to 4 cm central to any areas of significant stenosis. Common femoral, superficial femoral, popliteal, posterior tibial, and anterior tibial arteries were evaluated. FINDINGS: There is diffuse atherosclerotic plaque throughout the left lower extremity. The common femoral artery waveform is multiphasic with a brisk upstroke. The superficial femoral and popliteal arteries are patent with moderate velocity monophasic waveforms. No flow is identified in the posterior tibial artery. There is monophasic flow in the distal anterior tibial artery. IMPRESSION: Occluded posterior tibial artery. No other occlusion or focal stenosis is identified. Monophasic flow throughout the majority of the left lower extremity. ----- PROCEDURE(s): LFOOT - L FOOT 3 VIEW XRAY REASON: c/f 2nd toe infection ORDER NUMBER(s): [id number], ACCESSION NUMBER(s): [id number] X-ray left foot Technique: AP lateral and oblique views REASON FOR EXAM: c/f 2nd toe infection INDICATION: c/f 2nd toe infection FINDINGS: There has been amputation of the 1st digit. There is periarticular osteoporosis. No cortical destruction of bone. Plantar heel spur on lateral view IMPRESSION: 1. No acute bony pathology ----- - PATIENT: GIGI URENA ACCT: [id number] LOC: OVERFLOW U: [id number] AGE/SX: 54/F ROOM: [address] [place] [address] RE07/09/[address]: YUMI HARRIS RESIDENT : 1970 BED: A DIS: STATUS: ADM IN TLOC: - SPEC #: [id number] YEYO: 07/09/25 STATUS: RES REQ #: [id number] RECD: 07/09/[address] [facility] [address]: LANCE HERNANDEZ MD SOURCE: BLOOD ENTR: 07/09/25 [facility] DR: SPDESC: ORDERED: BCULT - Procedure Result - Blood Culture Preliminary NO GROWTH AFTER 24 HOURS OF INCUBATION. NO GROWTH AFTER 24 HOURS OF INCUBATION. ----- - PATIENT: GIGI URENA ACCT: [id number] LOC: OVERFLOW U: [id number] AGE/SX: 54/F ROOM: [address] [place] [address] RE07/09/[address]: YUMI HARRIS RESIDENT : 1970 BED: A DIS: STATUS: ADM IN TLOC: - SPEC #: [id number] YEYO: 07/09/25 STATUS: RES REQ #: [id number] RECD: 07/09/[address]: LANCE HERNANDEZ MD SOURCE: BLOOD ENTR: 07/09/25-[address]: SPDESC: ORDERED: BCULT - Procedure Result - Blood Culture Preliminary NO GROWTH AFTER 24 HOURS OF INCUBATION. NO GROWTH AFTER 24 HOURS OF INCUBATION. Condition at Discharge: Stable Final Diagnosis/Problems List LEFT LOWER EXTREMITY CELLULITIS QUESTIONABLE OSTEOMYELITIS NO ACTIVE SIGNS OF INFECTION IN THE HEEL NOTED Discharge Disposition: Home Discharge Instruct/Medications Diet: Consistent carbohydrate Activity: No Restrictions, As Tolerated Follow Up/Referral: Please follow up in the discharge clinic Please follow up with PCP at your earliest convenience Medications: Aspirin 81 mg daily Increased atorvastatin to 40 mg daily Continue home medication Scheduled Aspirin (Aspirin Low Dose), 81 MG PO DAILY Atorvastatin Calcium (Atorvastatin Calcium), 40 MG PO DAILY Glimepiride (Glimepiride), 1 TAB PO BID, (Reported) Levothyroxine Sodium (Levothyroxine Sodium), 1 TAB PO DAILY, (Reported) Lisinopril (Lisinopril), 1 TAB PO DAILY, (Reported) Metformin Hydrochloride (Metformin Hcl), 1 TAB PO BID, (Reported) Pioglitazone Hydrochloride (Pioglitazone Hcl), 1 TAB PO DAILY, (Reported) Semaglutide (Ozempic), 1 MG SC QWEEKLY, (Reported) Sulfamethoxazole W/Trimethopri (Bactrim Ds Tablet), 1 TAB PO BID Miscellaneous Medications Insulin Glargine (Basaglar Kwikpen), 20 UNIT SC, (Reported) Discontinued Medications Atorvastatin Calcium (Lipitor), (Reported) Discharge Statement: "Patient was advised to return to the ER or call 911 if any headaches, dizziness, shortness of breath, chest pain, abdominal pain, bleeding, fevers, or worsening of medical condition. Patient was counseled about treatment plan, medications, possible side effects, patientverbalized understanding. All questions were answered to the best of my ability. This discharge took greater then 30 minutes in planning, reviewing documentation, counseling the patient, and discussing with other team members." ASSESSMENT ASSESSMENT Assessment LEFT LOWER EXTREMITY CELLULITIS QUESTIONABLE OSTEOMYELITIS NO ACTIVE SIGNS OF INFECTION IN THE HEEL NOTED Date of Service: Jul 11, 2025 Billing Provider: VERITO CADE MD Common Visit Codes: 04421-MYL/OBS DISCH DAY >30min YUMI HARRIS RESIDENT Jul 11, 2025 15:42 VERITO CADE MD Jul 14, 2025 20:52
== END 2025-07-11 10:15 | disposition home or self-care (01) | DRG 344 ==
LOC: ER 14:47 → OVERFLOW 22:08
PROVIDERS: ADMIT Internal Medicine Geriatric Medicine; ATTEND Internal Medicine Geriatric Medicine
DX: E11.69 Type 2 diabetes mellitus with other specified complication (principal); M86.8X7 Other osteomyelitis, ankle and foot; E11.628 Type 2 diabetes mellitus with other skin complications; L03.116 Cellulitis of left lower limb; E11.51 Type 2 diabetes mellitus with diabetic peripheral angiopathy without gangrene; E66.9 Obesity, unspecified; E03.9 Hypothyroidism, unspecified; E11.65 Type 2 diabetes mellitus with hyperglycemia; L08.9 Local infection of the skin and subcutaneous tissue, unspecified; Z68.38 Body mass index [BMI] 38.0-38.9, adult; Z79.899 Other long term (current) drug therapy
CPT/HCPCS: 36415; 73630; 73700; 80048; 82962; 83036; 83605; 84443; 85025; 87040; 93926; 96360; G0378; J0692; J1815